=== PATIENT | male | born 1950 | race African-American/Black ===

== ENCOUNTER 2016-08-24 12:08 | Inpatient (IN) | payer OTHER ==
[~2016-08-24] VITALS: Ht 182.9 cm; Wt 63.0 kg
[2016-08-24 12:10] VITALS: BP_SYST 132
[2016-08-24 12:53] LABS: CALCIUM 8.7 mg/dL (8.4-11.0); CREATININE 1.83 mg/dL (0.55-1.30); POTASSIUM 4.3 mmol/L (3.5-5.1)
[2016-08-24 12:54] LABS: BASOPHILS % (AUTO) 1.2 % (0.0-2.0); EOSINOPHILS # (AUTO) 0.1 K/uL (0.0-0.4); EOSINOPHILS % (AUTO) 2.4 % (0.0-4.0); HEMOGLOBIN 10.9 g/dL (14.0-18.0); LYMPHOCYTES # (AUTO) 0.8 K/uL (1.0-5.5); LYMPHOCYTES % (AUTO) 20.5 % (20.5-51.5); MEAN CORPUSCULAR HEMOGLOBIN 32 pg (27-31); MEAN CORPUSCULAR HGB CONC 33 % (32-36); MEAN CORPUSCULAR VOLUME 97 fL (79.0-98.0); MONOCYTES # (AUTO) 0.5 K/uL (0.0-1.0); MONOCYTES % (AUTO) 13.8 % (1.7-9.3); NEUTROPHILS # (AUTO) 2.5 K/uL (1.8-7.7); NEUTROPHILS % (AUTO) 62.1 % (40.0-70.0); PLATELET COUNT (AUTO) 124 K/uL (130-430); RED BLOOD CELL COUNT(AUTO) 3.42 MIL/uL (4.2-6.2); RED CELL DISTRIBUTION WIDTH 16.3 % (9.0-15.0)
[2016-08-24 12:56] LABS: PROTHROMBIN TIME 10.7 SECS (9.5-12.5); WHITE BLOOD COUNT (AUTO) 3.9 K/uL (4.8-10.8)
[2016-08-24 12:58] LABS: ALBUMIN 2.8 g/dL (3.4-4.8); TOTAL BILIRUBIN 0.4 mg/dL (0.0-1.0); TOTAL PROTEIN, SERUM 7.3 g/dL (6.4-8.3)
[2016-08-24 13:33] LABS: BILIRUBIN,URINE NEGATIVE (NEGATIVE); BLOOD, URINE NEGATIVE (NEGATIVE); CLARITY/URINE SL HAZY (CLEAR); COLOR,URINE YELLOW (YELLOW); GLUCOSE,URINE 1+ (NEGATIVE); KETONES,URINE NEGATIVE (NEGATIVE); LEUKOCYTE ESTERASE ,URINE NEGATIVE (NEGATIVE); NITRITE, URINE NEGATIVE (NEGATIVE); PH,URINE 5.5 (5.0-8.0); PROTEIN URINE NEGATIVE (NEGATIVE); UROBILINOGEN,URINE 0.2 (0.2-1.0)
[2016-08-24] MEDS ORDERED: VANC125C10 PO (13:52)
[2016-08-24] MEDS ORDERED: VITD2000 PO (13:52)
[2016-08-24] MEDS ORDERED: TIOT18CA3 IH (13:52)
[2016-08-24] MEDS ORDERED: TAMS-11 PO (13:52)
[2016-08-24] MEDS ORDERED: METO25TA3 PO (13:52)
[2016-08-24] MEDS ORDERED: FAMO20TA8 PO (13:52)
[2016-08-24] MEDS ORDERED: FINA5TAB3 PO (13:52)
[2016-08-24] MEDS ORDERED: METO-290 PO (13:52)
[2016-08-24] MEDS ORDERED: TACR0.5C PO (13:52)
[2016-08-24] MEDS ORDERED: PRED10TA PO (13:52)
[2016-08-24] MEDS ORDERED: INSU100V26 SUBCUT (13:52)
[2016-08-24] MEDS ORDERED: TACR1CAP PO (13:52)
[2016-08-24] MEDS ORDERED: ACYC400T PO (13:52)
[2016-08-24] MEDS ORDERED: INSU100V9 SUBCUT (13:52)
[2016-08-24] MEDS ORDERED: SULF1TAB48 PO (13:52)
[2016-08-24] MEDS ORDERED: ACET325T53 PO (13:52)
[2016-08-24] MEDS ORDERED: MYCO180T3 PO (13:52)
[2016-08-24] MEDS ORDERED: AZIT250T PO (13:52)
[2016-08-24] MEDS ORDERED: PSYL3.4P6 PO (13:52)
[2016-08-24] MEDS ORDERED: FOLI-43 PO (13:52)
[2016-08-24] MEDS ORDERED: IPRA4AER INH (13:52)
[2016-08-24] MEDS ORDERED: methylPREDNISolone SOD SUCC/PF 62.5 MG/ML VIAL IVP ONE (14:00)
[2016-08-24] MEDS ORDERED: IPRATROPIUM/ALBUTEROL SULFATE 3 ML AMPUL.NEB INH ONE (14:00)
[2016-08-24 14:14] VITALS: BP_SYST 128
[2016-08-24] MEDS ORDERED: LEVOFLOXACIN 500 MG/D5W 100 ML IV ONE (15:00)
[2016-08-24] MEDS ORDERED: ACETAMINOPHEN 325 MG TABLET PO PRN (17:15)
[2016-08-24] MEDS: VANCOMYCIN HCL 125 MG CAPSULE PO SCH ×2 (18:00→23:29)
[2016-08-24 18:21] VITALS: BP_SYST 122
[2016-08-24 18:31] LABS: ABG TOTAL HEMOGLOBIN 11.3 G/dL (12.0-18.0); BLOOD GAS BASE EXCESS 5.2 mmol/L (-3.0-3.0); BLOOD GAS COHb% 0.5 % (0.5-1.5); BLOOD GAS HHB 2.6 % (0.0-6.0); BLOOD GAS PH 7.434 (7.350-7.450); BLOOD O2Hb% 96.6 % (94.0-97.0)
[2016-08-24 18:47] VITALS: BP_SYST 122
[2016-08-24 20:15] VITALS: BP_SYST 121
[2016-08-24] MEDS: PSYLLIUM HUSK 1 PKT PACKET PO SCH (21:00)
[2016-08-24] MEDS ORDERED: NON-FORMULARY MEDICATION (Mycophenolate Sodium (Mycophenolic Acid) 180 MG) PO SCH (21:00)
[2016-08-24] MEDS: ACYCLOVIR 400 MG TABLET PO SCH (21:46)
[2016-08-24] MEDS: TAMSULOSIN HCL 0.4 MG CAP PO SCH (21:46)
[2016-08-24] MEDS: FAMOTIDINE 20 MG TABLET PO SCH (21:46)
[2016-08-24] MEDS: TACROLIMUS ANHYDROUS 0.5 MG CAPSULE (PROGRAF) PO SCH (21:51)
[2016-08-24] MEDS ORDERED: DEXTROSE 50% JECT 50 ML DISP.SYRIN IVP PRN (22:30)
[2016-08-24] MEDS: INSULIN REGULAR, HUMAN 100 UNITS/ML, 10 ML VIAL (novoLIN R) SUBCUT PRN (22:39)
[2016-08-24] MEDS: PIPERACILLIN/TAZO 3.375/DEX-IS 50 ML IV SCH (23:29)
[2016-08-24] MEDS: IPRATROPIUM/ALBUTEROL SULFATE 3 ML AMPUL.NEB INH PRN (23:44)
[2016-08-25 00:07] VITALS: BP_SYST 128
[2016-08-25 04:00] VITALS: BP_SYST 120
[2016-08-25] MEDS: IPRATROPIUM/ALBUTEROL SULFATE 3 ML AMPUL.NEB INH PRN ×3 (05:29→14:32)
[2016-08-25] MEDS: VANCOMYCIN HCL 125 MG CAPSULE PO SCH ×4 (05:30→23:37)
[2016-08-25] MEDS: PIPERACILLIN/TAZO 3.375/DEX-IS 50 ML IV SCH ×3 (05:30→21:21)
[2016-08-25] MEDS: INSULIN REGULAR, HUMAN 100 UNITS/ML, 10 ML VIAL (novoLIN R) SUBCUT PRN (06:30)
[2016-08-25] MEDS: INSULIN ASPART 100 UNITS/ML, 10 ML VIAL SUBCUT SCH ×3 (06:31→18:05)
[2016-08-25] MEDS: METOCLOPRAMIDE HCL 10 MG TABLET PO SCH ×3 (06:36→17:34)
[2016-08-25 07:18] LABS: BASOPHILS % (AUTO) 0.3 % (0.0-2.0); EOSINOPHILS % (AUTO) 0.1 % (0.0-4.0); HEMATOCRIT 31.3 % (36-54); HEMOGLOBIN 10.3 g/dL (14.0-18.0); LYMPHOCYTES # (AUTO) 0.5 K/uL (1.0-5.5); LYMPHOCYTES % (AUTO) 10.3 % (20.5-51.5); MEAN CORPUSCULAR HEMOGLOBIN 32 pg (27-31); MEAN CORPUSCULAR HGB CONC 33 % (32-36); MEAN CORPUSCULAR VOLUME 96 fL (79.0-98.0); MONOCYTES # (AUTO) 0.2 K/uL (0.0-1.0); NEUTROPHILS # (AUTO) 3.7 K/uL (1.8-7.7); NEUTROPHILS % (AUTO) 85.3 % (40.0-70.0); PLATELET COUNT (AUTO) 131 K/uL (130-430); RED BLOOD CELL COUNT(AUTO) 3.24 MIL/uL (4.2-6.2); RED CELL DISTRIBUTION WIDTH 16.8 % (9.0-15.0); WHITE BLOOD COUNT (AUTO) 4.4 K/uL (4.8-10.8)
[2016-08-25 07:20] LABS: ALBUMIN 2.6 g/dL (3.4-4.8); CALCIUM 8.8 mg/dL (8.4-11.0); CREATININE 1.98 mg/dL (0.55-1.30); POTASSIUM 4.5 mmol/L (3.5-5.1); TOTAL BILIRUBIN 0.4 mg/dL (0.0-1.0); TOTAL PROTEIN, SERUM 7.2 g/dL (6.4-8.3)
[2016-08-25 08:54] VITALS: BP_SYST 143
[2016-08-25] MEDS ORDERED: PREDNISONE 10 MG TABLET PO SCH (09:00)
[2016-08-25] MEDS: FINASTERIDE 5 MG TABLET (PROSCAR) PO SCH (09:03)
[2016-08-25] MEDS: METOPROLOL SUCCINATE 25 MG TAB.SR.24H (TOPROL XL) PO SCH (09:03)
[2016-08-25] MEDS: CHOLECALCIFEROL (VITAMIN D3) 2,000 UNIT TABLET PO SCH (09:03)
[2016-08-25] MEDS: PSYLLIUM HUSK 1 PKT PACKET PO SCH ×2 (09:03→21:22)
[2016-08-25] MEDS: FOLIC ACID 1 MG TABLET PO SCH (09:03)
[2016-08-25] MEDS: FAMOTIDINE 20 MG TABLET PO SCH ×2 (09:03→21:22)
[2016-08-25] MEDS: TIOTROPIUM BROMIDE 18 mcg/INHALATION (CAPSULE) IH SCH (09:03)
[2016-08-25] MEDS: ACYCLOVIR 400 MG TABLET PO SCH ×2 (09:03→21:22)
[2016-08-25] MEDS: TACROLIMUS ANHYDROUS 1 MG CAPSULE (PROGRAF) PO SCH (09:13)
[2016-08-25 11:44] VITALS: BP_SYST 114
[2016-08-25] MEDS ORDERED: methylPREDNISolone SOD SUCC 40 MG/ML VIAL IVP ONE (15:15)
[2016-08-25 16:56] VITALS: BP_SYST 112
[2016-08-25 20:13] VITALS: BP_SYST 116
[2016-08-25] MEDS: IPRATROPIUM/ALBUTEROL SULFATE 3 ML AMPUL.NEB INH SCH (20:15)
[2016-08-25] MEDS: TAMSULOSIN HCL 0.4 MG CAP PO SCH (21:22)
[2016-08-25] MEDS: methylPREDNISolone SOD SUCC 40 MG/ML VIAL IVP SCH (21:22)
[2016-08-25] MEDS: TACROLIMUS ANHYDROUS 0.5 MG CAPSULE (PROGRAF) PO SCH (21:25)
[2016-08-26] MEDS: IPRATROPIUM/ALBUTEROL SULFATE 3 ML AMPUL.NEB INH SCH ×4 (00:28→20:30)
[2016-08-26 00:59] VITALS: BP_SYST 123
[2016-08-26 03:19] VITALS: BP_SYST 107; BP_SYST 122
[2016-08-26] MEDS: VANCOMYCIN HCL 125 MG CAPSULE PO SCH ×4 (05:18→23:28)
[2016-08-26] MEDS: PIPERACILLIN/TAZO 3.375/DEX-IS 50 ML IV SCH ×3 (05:18→21:20)
[2016-08-26] MEDS: METOCLOPRAMIDE HCL 10 MG TABLET PO SCH ×3 (05:54→17:22)
[2016-08-26] MEDS: INSULIN ASPART 100 UNITS/ML, 10 ML VIAL SUBCUT SCH ×3 (06:02→17:49)
[2016-08-26] MEDS: INSULIN REGULAR, HUMAN 100 UNITS/ML, 10 ML VIAL (novoLIN R) SUBCUT PRN ×2 (06:03→17:50)
[2016-08-26 06:48] LABS: CALCIUM 8.4 mg/dL (8.4-11.0); CREATININE 2.19 mg/dL (0.55-1.30); POTASSIUM 5.2 mmol/L (3.5-5.1)
[2016-08-26 06:52] LABS: BASOPHILS % (AUTO) 0.3 % (0.0-2.0); EOSINOPHILS % (AUTO) 0.3 % (0.0-4.0); HEMOGLOBIN 9.1 g/dL (14.0-18.0); LYMPHOCYTES # (AUTO) 0.4 K/uL (1.0-5.5); LYMPHOCYTES % (AUTO) 6.2 % (20.5-51.5); MEAN CORPUSCULAR HEMOGLOBIN 32 pg (27-31); MEAN CORPUSCULAR HGB CONC 33 % (32-36); MEAN CORPUSCULAR VOLUME 98 fL (79.0-98.0); MONOCYTES # (AUTO) 0.2 K/uL (0.0-1.0); MONOCYTES % (AUTO) 3.4 % (1.7-9.3); NEUTROPHILS # (AUTO) 5.5 K/uL (1.8-7.7); NEUTROPHILS % (AUTO) 89.8 % (40.0-70.0); PLATELET COUNT (AUTO) 119 K/uL (130-430); RED BLOOD CELL COUNT(AUTO) 2.86 MIL/uL (4.2-6.2)
[2016-08-26 06:56] LABS: WHITE BLOOD COUNT (AUTO) 6.1 K/uL (4.8-10.8)
[2016-08-26 08:02] VITALS: BP_SYST 120
[2016-08-26] MEDS: FOLIC ACID 1 MG TABLET PO SCH (08:51)
[2016-08-26] MEDS: methylPREDNISolone SOD SUCC 40 MG/ML VIAL IVP SCH ×2 (08:51→21:21)
[2016-08-26] MEDS: TIOTROPIUM BROMIDE 18 mcg/INHALATION (CAPSULE) IH SCH (08:51)
[2016-08-26] MEDS: ACYCLOVIR 400 MG TABLET PO SCH ×2 (08:52→21:22)
[2016-08-26] MEDS: FAMOTIDINE 20 MG TABLET PO SCH ×2 (08:52→21:22)
[2016-08-26] MEDS: AZITHROMYCIN 250 MG TABLET PO SCH (08:52)
[2016-08-26] MEDS: CHOLECALCIFEROL (VITAMIN D3) 2,000 UNIT TABLET PO SCH (08:53)
[2016-08-26] MEDS: SULFAMETHOXAZOLE/TRIMETHOPR DS 1 TABLET PO SCH (08:53)
[2016-08-26] MEDS: FINASTERIDE 5 MG TABLET (PROSCAR) PO SCH (08:53)
[2016-08-26] MEDS: TACROLIMUS ANHYDROUS 1 MG CAPSULE (PROGRAF) PO SCH (08:54)
[2016-08-26] MEDS: METOPROLOL SUCCINATE 25 MG TAB.SR.24H (TOPROL XL) PO SCH (08:55)
[2016-08-26] MEDS: PSYLLIUM HUSK 1 PKT PACKET PO SCH ×2 (09:00→21:00)
[2016-08-26] MEDS: IPRATROPIUM/ALBUTEROL SULFATE 3 ML AMPUL.NEB INH PRN (11:17)
[2016-08-26 12:00] VITALS: BP_SYST 126
[2016-08-26 16:00] VITALS: BP_SYST 127
[2016-08-26 20:00] VITALS: BP_SYST 125
[2016-08-26] MEDS: FUROSEMIDE 20 MG/2 ML VIAL IVP SCH (21:21)
[2016-08-26] MEDS: TACROLIMUS ANHYDROUS 0.5 MG CAPSULE (PROGRAF) PO SCH (21:22)
[2016-08-26] MEDS: TAMSULOSIN HCL 0.4 MG CAP PO SCH (21:22)
[2016-08-27] VITALS (7 sets, daily range): BP systolic 112–145
[2016-08-27] MEDS: IPRATROPIUM/ALBUTEROL SULFATE 3 ML AMPUL.NEB INH SCH ×4 (01:00→21:10)
[2016-08-27] MEDS: VANCOMYCIN HCL 125 MG CAPSULE PO SCH ×3 (06:00→17:03)
[2016-08-27] MEDS: PIPERACILLIN/TAZO 3.375/DEX-IS 50 ML IV SCH (06:00)
[2016-08-27] MEDS: METOCLOPRAMIDE HCL 10 MG TABLET PO SCH ×3 (06:01→17:03)
[2016-08-27] MEDS: INSULIN ASPART 100 UNITS/ML, 10 ML VIAL SUBCUT SCH ×3 (06:04→17:53)
[2016-08-27] MEDS: INSULIN REGULAR, HUMAN 100 UNITS/ML, 10 ML VIAL (novoLIN R) SUBCUT PRN ×2 (06:05→17:52)
[2016-08-27 07:29] LABS: BASOPHILS % (AUTO) 0.1 % (0.0-2.0); EOSINOPHILS % (AUTO) 0.6 % (0.0-4.0); HEMATOCRIT 29.7 % (36-54); HEMOGLOBIN 9.5 g/dL (14.0-18.0); LYMPHOCYTES # (AUTO) 0.4 K/uL (1.0-5.5); MEAN CORPUSCULAR HEMOGLOBIN 31 pg (27-31); MEAN CORPUSCULAR HGB CONC 32 % (32-36); MEAN CORPUSCULAR VOLUME 96 fL (79.0-98.0); MONOCYTES # (AUTO) 0.3 K/uL (0.0-1.0); MONOCYTES % (AUTO) 5.4 % (1.7-9.3); NEUTROPHILS # (AUTO) 5.4 K/uL (1.8-7.7); NEUTROPHILS % (AUTO) 87.9 % (40.0-70.0); PLATELET COUNT (AUTO) 124 K/uL (130-430); RED BLOOD CELL COUNT(AUTO) 3.09 MIL/uL (4.2-6.2); RED CELL DISTRIBUTION WIDTH 17.5 % (9.0-15.0); WHITE BLOOD COUNT (AUTO) 6.2 K/uL (4.8-10.8)
[2016-08-27 07:38] LABS: CALCIUM 8.6 mg/dL (8.4-11.0); CREATININE 2.36 mg/dL (0.55-1.30); POTASSIUM 4.9 mmol/L (3.5-5.1)
[2016-08-27] MEDS: CHOLECALCIFEROL (VITAMIN D3) 2,000 UNIT TABLET PO SCH (08:25)
[2016-08-27] MEDS: FUROSEMIDE 20 MG/2 ML VIAL IVP SCH ×2 (08:26→20:22)
[2016-08-27] MEDS: FAMOTIDINE 20 MG TABLET PO SCH ×2 (08:26→20:08)
[2016-08-27] MEDS: FOLIC ACID 1 MG TABLET PO SCH (08:26)
[2016-08-27] MEDS: ACYCLOVIR 400 MG TABLET PO SCH ×2 (08:26→20:08)
[2016-08-27] MEDS: FINASTERIDE 5 MG TABLET (PROSCAR) PO SCH (08:27)
[2016-08-27] MEDS: methylPREDNISolone SOD SUCC 40 MG/ML VIAL IVP SCH ×2 (08:27→17:03)
[2016-08-27] MEDS: METOPROLOL SUCCINATE 25 MG TAB.SR.24H (TOPROL XL) PO SCH (08:27)
[2016-08-27] MEDS: TIOTROPIUM BROMIDE 18 mcg/INHALATION (CAPSULE) IH SCH (08:33)
[2016-08-27] MEDS: TACROLIMUS ANHYDROUS 1 MG CAPSULE (PROGRAF) PO SCH (08:34)
[2016-08-27] MEDS: PSYLLIUM HUSK 1 PKT PACKET PO SCH ×2 (09:00→20:09)
[2016-08-27] MEDS: TAMSULOSIN HCL 0.4 MG CAP PO SCH (20:08)
[2016-08-27] MEDS: TACROLIMUS ANHYDROUS 0.5 MG CAPSULE (PROGRAF) PO SCH (20:09)
[2016-08-27] MEDS: MEROPENEM 500 MG in NS 50 ML IV SCH (20:22)
[2016-08-27] MEDS: TOBRAMYCIN 300MG/5ML INH AMPUL.NEB INH SCH (21:18)
[2016-08-28] MEDS: VANCOMYCIN HCL 125 MG CAPSULE PO SCH ×4 (00:13→18:12)
[2016-08-28] MEDS: IPRATROPIUM/ALBUTEROL SULFATE 3 ML AMPUL.NEB INH SCH ×3 (01:12→21:40)
[2016-08-28] MEDS: methylPREDNISolone SOD SUCC 40 MG/ML VIAL IVP SCH ×3 (01:16→18:12)
[2016-08-28 04:14] VITALS: BP_SYST 129
[2016-08-28] MEDS: METOCLOPRAMIDE HCL 10 MG TABLET PO SCH ×3 (06:11→18:12)
[2016-08-28] MEDS: INSULIN ASPART 100 UNITS/ML, 10 ML VIAL SUBCUT SCH ×3 (06:16→18:16)
[2016-08-28 06:30] LABS: HEMATOCRIT 29.8 % (36-54); HEMOGLOBIN 9.4 g/dL (14.0-18.0); LYMPHOCYTES # (AUTO) 0.3 K/uL (1.0-5.5); LYMPHOCYTES % (AUTO) 4.8 % (20.5-51.5); MEAN CORPUSCULAR HEMOGLOBIN 30 pg (27-31); MEAN CORPUSCULAR HGB CONC 32 % (32-36); MEAN CORPUSCULAR VOLUME 96 fL (79.0-98.0); MONOCYTES # (AUTO) 0.4 K/uL (0.0-1.0); MONOCYTES % (AUTO) 6.2 % (1.7-9.3); NEUTROPHILS # (AUTO) 5.3 K/uL (1.8-7.7); PLATELET COUNT (AUTO) 132 K/uL (130-430); RED CELL DISTRIBUTION WIDTH 17.2 % (9.0-15.0)
[2016-08-28] MEDS: INSULIN REGULAR, HUMAN 100 UNITS/ML, 10 ML VIAL (novoLIN R) SUBCUT PRN ×2 (06:32→11:34)
[2016-08-28 06:33] LABS: CALCIUM 8.8 mg/dL (8.4-11.0); CHLORIDE 98 mmol/L (98-107); CREATININE 2.29 mg/dL (0.55-1.30); GLUCOSE 218 mg/dL (70-99); POTASSIUM 4.8 mmol/L (3.5-5.1); SODIUM SERUM 133 mmol/L (136-145); UREA NITROGEN, BLOOD 52 mg/dL (8-21)
[2016-08-28 06:42] LABS: ANION GAP < 3 (5-15); GFR AFRICAN AMERICAN 37 mL/min (>90)
[2016-08-28 08:00] VITALS: BP_SYST 149
[2016-08-28] MEDS: TIOTROPIUM BROMIDE 18 mcg/INHALATION (CAPSULE) IH SCH (08:59)
[2016-08-28] MEDS: PSYLLIUM HUSK 1 PKT PACKET PO SCH ×2 (09:00→20:59)
[2016-08-28] MEDS: FUROSEMIDE 20 MG/2 ML VIAL IVP SCH ×2 (09:00→21:49)
[2016-08-28] MEDS: SULFAMETHOXAZOLE/TRIMETHOPR DS 1 TABLET PO SCH (09:00)
[2016-08-28] MEDS: TACROLIMUS ANHYDROUS 1 MG CAPSULE (PROGRAF) PO SCH (09:00)
[2016-08-28] MEDS: ACYCLOVIR 400 MG TABLET PO SCH ×2 (09:00→20:58)
[2016-08-28] MEDS: FAMOTIDINE 20 MG TABLET PO SCH ×2 (09:00→20:58)
[2016-08-28] MEDS: FOLIC ACID 1 MG TABLET PO SCH (09:00)
[2016-08-28] MEDS: METOPROLOL SUCCINATE 25 MG TAB.SR.24H (TOPROL XL) PO SCH (09:02)
[2016-08-28] MEDS: AZITHROMYCIN 250 MG TABLET PO SCH (09:02)
[2016-08-28] MEDS: MEROPENEM 500 MG in NS 50 ML IV SCH ×2 (09:02→21:48)
[2016-08-28] MEDS: CHOLECALCIFEROL (VITAMIN D3) 2,000 UNIT TABLET PO SCH (09:02)
[2016-08-28] MEDS: FINASTERIDE 5 MG TABLET (PROSCAR) PO SCH (09:12)
[2016-08-28 11:30] VITALS: BP_SYST 134
[2016-08-28 15:28] VITALS: BP_SYST 126
[2016-08-28 19:40] VITALS: BP_SYST 140
[2016-08-28] MEDS: TAMSULOSIN HCL 0.4 MG CAP PO SCH (20:58)
[2016-08-28] MEDS: TACROLIMUS ANHYDROUS 0.5 MG CAPSULE (PROGRAF) PO SCH (20:59)
[2016-08-28] MEDS: TOBRAMYCIN 300MG/5ML INH AMPUL.NEB INH SCH (21:42)
[2016-08-29 00:34] VITALS: BP_SYST 122
[2016-08-29] MEDS: methylPREDNISolone SOD SUCC 40 MG/ML VIAL IVP SCH ×3 (00:53→17:08)
[2016-08-29] MEDS: VANCOMYCIN HCL 125 MG CAPSULE PO SCH ×4 (00:53→17:08)
[2016-08-29] MEDS: IPRATROPIUM/ALBUTEROL SULFATE 3 ML AMPUL.NEB INH SCH ×4 (01:38→19:32)
[2016-08-29 04:00] VITALS: BP_SYST 136
[2016-08-29] MEDS: METOCLOPRAMIDE HCL 10 MG TABLET PO SCH ×3 (06:12→17:08)
[2016-08-29] MEDS: INSULIN ASPART 100 UNITS/ML, 10 ML VIAL SUBCUT SCH ×3 (06:14→17:13)
[2016-08-29] MEDS: INSULIN REGULAR, HUMAN 100 UNITS/ML, 10 ML VIAL (novoLIN R) SUBCUT PRN ×3 (06:25→17:14)
[2016-08-29 08:00] VITALS: BP_SYST 146
[2016-08-29] MEDS: TOBRAMYCIN 300MG/5ML INH AMPUL.NEB INH SCH ×2 (08:00→19:44)
[2016-08-29] MEDS: PSYLLIUM HUSK 1 PKT PACKET PO SCH ×2 (09:00→21:00)
[2016-08-29] MEDS: TIOTROPIUM BROMIDE 18 mcg/INHALATION (CAPSULE) IH SCH (09:18)
[2016-08-29] MEDS: MEROPENEM 500 MG in NS 50 ML IV SCH ×2 (09:18→21:02)
[2016-08-29] MEDS: METOPROLOL SUCCINATE 25 MG TAB.SR.24H (TOPROL XL) PO SCH (09:21)
[2016-08-29] MEDS: FAMOTIDINE 20 MG TABLET PO SCH ×2 (09:22→21:01)
[2016-08-29] MEDS: FUROSEMIDE 20 MG/2 ML VIAL IVP SCH ×2 (09:22→21:00)
[2016-08-29] MEDS: FOLIC ACID 1 MG TABLET PO SCH (09:22)
[2016-08-29] MEDS: CHOLECALCIFEROL (VITAMIN D3) 2,000 UNIT TABLET PO SCH (09:22)
[2016-08-29] MEDS: ACYCLOVIR 400 MG TABLET PO SCH ×2 (09:22→21:01)
[2016-08-29] MEDS: FINASTERIDE 5 MG TABLET (PROSCAR) PO SCH (09:22)
[2016-08-29] MEDS: TACROLIMUS ANHYDROUS 1 MG CAPSULE (PROGRAF) PO SCH (10:08)
[2016-08-29 12:00] VITALS: BP_SYST 130
[2016-08-29 15:38] VITALS: BP_SYST 120
[2016-08-29] MEDS ORDERED: SODIUM CL 3% FOR INHALATION 15 ML VIAL.NEB INH ONE (16:45)
[2016-08-29 20:00] VITALS: BP_SYST 126
[2016-08-29] MEDS: TAMSULOSIN HCL 0.4 MG CAP PO SCH (21:01)
[2016-08-29] MEDS: TACROLIMUS ANHYDROUS 0.5 MG CAPSULE (PROGRAF) PO SCH (21:01)
[2016-08-30 00:05] VITALS: BP_SYST 140
[2016-08-30] MEDS: VANCOMYCIN HCL 125 MG CAPSULE PO SCH ×4 (00:52→17:31)
[2016-08-30] MEDS: methylPREDNISolone SOD SUCC 40 MG/ML VIAL IVP SCH ×3 (00:52→17:31)
[2016-08-30] MEDS: IPRATROPIUM/ALBUTEROL SULFATE 3 ML AMPUL.NEB INH SCH ×4 (01:04→19:13)
[2016-08-30 04:00] VITALS: BP_SYST 116
[2016-08-30] MEDS: METOCLOPRAMIDE HCL 10 MG TABLET PO SCH ×3 (06:23→17:19)
[2016-08-30] MEDS: INSULIN REGULAR, HUMAN 100 UNITS/ML, 10 ML VIAL (novoLIN R) SUBCUT PRN ×3 (06:31→21:47)
[2016-08-30] MEDS: INSULIN ASPART 100 UNITS/ML, 10 ML VIAL SUBCUT SCH ×3 (06:37→17:24)
[2016-08-30 07:00] VITALS: BP_SYST 132
[2016-08-30] MEDS: TOBRAMYCIN 300MG/5ML INH AMPUL.NEB INH SCH ×2 (07:19→19:00)
[2016-08-30 07:40] VITALS: BP_SYST 132
[2016-08-30] MEDS: PSYLLIUM HUSK 1 PKT PACKET PO SCH ×2 (09:00→21:00)
[2016-08-30] MEDS: TIOTROPIUM BROMIDE 18 mcg/INHALATION (CAPSULE) IH SCH (09:23)
[2016-08-30] MEDS: FUROSEMIDE 20 MG/2 ML VIAL IVP SCH ×2 (09:24→21:40)
[2016-08-30] MEDS: TACROLIMUS ANHYDROUS 1 MG CAPSULE (PROGRAF) PO SCH (09:25)
[2016-08-30] MEDS: FINASTERIDE 5 MG TABLET (PROSCAR) PO SCH (09:26)
[2016-08-30] MEDS: FOLIC ACID 1 MG TABLET PO SCH (09:26)
[2016-08-30] MEDS: CHOLECALCIFEROL (VITAMIN D3) 2,000 UNIT TABLET PO SCH (09:26)
[2016-08-30] MEDS: ACYCLOVIR 400 MG TABLET PO SCH ×2 (09:26→21:37)
[2016-08-30] MEDS: FAMOTIDINE 20 MG TABLET PO SCH ×2 (09:27→21:37)
[2016-08-30] MEDS: METOPROLOL SUCCINATE 25 MG TAB.SR.24H (TOPROL XL) PO SCH (09:27)
[2016-08-30] MEDS: MEROPENEM 500 MG in NS 50 ML IV SCH ×2 (09:36→21:37)
[2016-08-30 12:00] VITALS: BP_SYST 145
[2016-08-30 16:00] VITALS: BP_SYST 134
[2016-08-30] MEDS ORDERED: TOBRAMYCIN SULFATE 80 MG/2 ML VIAL ONE (19:52)
[2016-08-30] MEDS: TAMSULOSIN HCL 0.4 MG CAP PO SCH (21:37)
[2016-08-30] MEDS: TACROLIMUS ANHYDROUS 0.5 MG CAPSULE (PROGRAF) PO SCH (21:38)
[2016-08-31] VITALS: BP_SYST 136
[2016-08-31] MEDS: methylPREDNISolone SOD SUCC 40 MG/ML VIAL IVP SCH ×4 (00:43→21:49)
[2016-08-31] MEDS: VANCOMYCIN HCL 125 MG CAPSULE PO SCH (00:43)
[2016-08-31] MEDS: IPRATROPIUM/ALBUTEROL SULFATE 3 ML AMPUL.NEB INH SCH ×4 (01:13→19:29)
[2016-08-31 03:18] VITALS: BP_SYST 145
[2016-08-31] MEDS: METOCLOPRAMIDE HCL 10 MG TABLET PO SCH ×3 (06:05→17:20)
[2016-08-31] MEDS: INSULIN ASPART 100 UNITS/ML, 10 ML VIAL SUBCUT SCH ×3 (06:09→17:00)
[2016-08-31] MEDS: INSULIN REGULAR, HUMAN 100 UNITS/ML, 10 ML VIAL (novoLIN R) SUBCUT PRN ×2 (06:12→21:59)
[2016-08-31 06:35] LABS: BASOPHILS % (AUTO) 0.1 % (0.0-2.0); HEMATOCRIT 32.8 % (36-54); HEMOGLOBIN 10.4 g/dL (14.0-18.0); LYMPHOCYTES # (AUTO) 0.2 K/uL (1.0-5.5); LYMPHOCYTES % (AUTO) 3.3 % (20.5-51.5); MEAN CORPUSCULAR HEMOGLOBIN 31 pg (27-31); MEAN CORPUSCULAR HGB CONC 32 % (32-36); MEAN CORPUSCULAR VOLUME 98 fL (79.0-98.0); MONOCYTES # (AUTO) 0.4 K/uL (0.0-1.0); MONOCYTES % (AUTO) 6.9 % (1.7-9.3); NEUTROPHILS # (AUTO) 5.2 K/uL (1.8-7.7); NEUTROPHILS % (AUTO) 89.7 % (40.0-70.0); PLATELET COUNT (AUTO) 165 K/uL (130-430); RED BLOOD CELL COUNT(AUTO) 3.35 MIL/uL (4.2-6.2); RED CELL DISTRIBUTION WIDTH 18.1 % (9.0-15.0); WHITE BLOOD COUNT (AUTO) 5.9 K/uL (4.8-10.8)
[2016-08-31 07:14] LABS: CREATININE 2.22 mg/dL (0.55-1.30); POTASSIUM 4.7 mmol/L (3.5-5.1)
[2016-08-31 08:00] VITALS: BP_SYST 156
[2016-08-31] MEDS: TIOTROPIUM BROMIDE 18 mcg/INHALATION (CAPSULE) IH SCH (08:46)
[2016-08-31] MEDS: METOPROLOL SUCCINATE 25 MG TAB.SR.24H (TOPROL XL) PO SCH (08:47)
[2016-08-31] MEDS: ACYCLOVIR 400 MG TABLET PO SCH (08:47)
[2016-08-31] MEDS: MEROPENEM 500 MG in NS 50 ML IV SCH ×2 (08:47→21:48)
[2016-08-31] MEDS: FUROSEMIDE 20 MG/2 ML VIAL IVP SCH ×2 (08:47→21:49)
[2016-08-31] MEDS: TACROLIMUS ANHYDROUS 1 MG CAPSULE (PROGRAF) PO SCH (08:48)
[2016-08-31] MEDS: FAMOTIDINE 20 MG TABLET PO SCH ×2 (08:48→21:48)
[2016-08-31] MEDS: SULFAMETHOXAZOLE/TRIMETHOPR DS 1 TABLET PO SCH (08:48)
[2016-08-31] MEDS: FOLIC ACID 1 MG TABLET PO SCH (08:48)
[2016-08-31] MEDS: CHOLECALCIFEROL (VITAMIN D3) 2,000 UNIT TABLET PO SCH (08:48)
[2016-08-31] MEDS: FINASTERIDE 5 MG TABLET (PROSCAR) PO SCH (08:48)
[2016-08-31] MEDS: PSYLLIUM HUSK 1 PKT PACKET PO SCH ×2 (09:00→21:00)
[2016-08-31] MEDS: TOBRAMYCIN 300MG/5ML INH AMPUL.NEB INH SCH ×2 (09:00→19:45)
[2016-08-31] MEDS: MAG-AL HYDROX/SIMETH 30 ML UDC PO PRN ×3 (10:43→23:01)
[2016-08-31 12:50] VITALS: BP_SYST 126
[2016-08-31 16:58] VITALS: BP_SYST 125
[2016-08-31 21:43] LABS: MYCOPLASMA PNEUMONIAE IgM <770 U/mL (0-769)
[2016-08-31] MEDS: TAMSULOSIN HCL 0.4 MG CAP PO SCH (21:48)
[2016-08-31] MEDS: TACROLIMUS ANHYDROUS 0.5 MG CAPSULE (PROGRAF) PO SCH (22:04)
[2016-08-31] MEDS: IPRATROPIUM/ALBUTEROL SULFATE 3 ML AMPUL.NEB INH PRN (22:27)
[2016-09-01] VITALS: BP_SYST 143
[2016-09-01] MEDS: IPRATROPIUM/ALBUTEROL SULFATE 3 ML AMPUL.NEB INH SCH ×4 (00:28→19:35)
[2016-09-01 04:00] VITALS: BP_SYST 122
[2016-09-01] MEDS: MAG-AL HYDROX/SIMETH 30 ML UDC PO PRN (05:31)
[2016-09-01] MEDS: METOCLOPRAMIDE HCL 10 MG TABLET PO SCH (06:05)
[2016-09-01] MEDS: INSULIN ASPART 100 UNITS/ML, 10 ML VIAL SUBCUT SCH ×3 (06:09→17:25)
[2016-09-01] MEDS: INSULIN REGULAR, HUMAN 100 UNITS/ML, 10 ML VIAL (novoLIN R) SUBCUT PRN (06:11)
[2016-09-01 08:30] VITALS: BP_SYST 143
[2016-09-01] MEDS: TIOTROPIUM BROMIDE 18 mcg/INHALATION (CAPSULE) IH SCH (08:39)
[2016-09-01] MEDS: MEROPENEM 500 MG in NS 50 ML IV SCH ×2 (08:40→21:17)
[2016-09-01] MEDS: methylPREDNISolone SOD SUCC 40 MG/ML VIAL IVP SCH ×2 (08:45→21:18)
[2016-09-01] MEDS: FOLIC ACID 1 MG TABLET PO SCH (08:46)
[2016-09-01] MEDS: TACROLIMUS ANHYDROUS 1 MG CAPSULE (PROGRAF) PO SCH (08:47)
[2016-09-01] MEDS: FAMOTIDINE 20 MG TABLET PO SCH ×2 (08:47→21:17)
[2016-09-01] MEDS: PSYLLIUM HUSK 1 PKT PACKET PO SCH ×3 (08:47→21:18)
[2016-09-01] MEDS: CHOLECALCIFEROL (VITAMIN D3) 2,000 UNIT TABLET PO SCH (08:48)
[2016-09-01] MEDS: FINASTERIDE 5 MG TABLET (PROSCAR) PO SCH (08:48)
[2016-09-01] MEDS: METOPROLOL SUCCINATE 25 MG TAB.SR.24H (TOPROL XL) PO SCH (09:14)
[2016-09-01] MEDS: TOBRAMYCIN 300MG/5ML INH AMPUL.NEB INH SCH ×2 (09:22→19:52)
[2016-09-01 09:38] LABS: FREE T4 (FREE THYROXINE) 0.6 ng/dL (0.6-1.6); THYROID STIMULATING HORMONE 1.08 uIu/mL (0.34-4.82)
[2016-09-01 11:02] LABS: ALBUMIN 2.9 g/dL (3.4-4.8); CALCIUM 9.4 mg/dL (8.4-11.0); CREATININE 2.23 mg/dL (0.55-1.30); POTASSIUM 4.7 mmol/L (3.5-5.1); TOTAL BILIRUBIN 0.3 mg/dL (0.0-1.0); TOTAL PROTEIN, SERUM 6.8 g/dL (6.4-8.3)
[2016-09-01 12:43] VITALS: BP_SYST 119; BP_SYST 149
[2016-09-01] MEDS ORDERED: FLUCONAZOLE 100 MG TABLET (DIFLUCAN) PO ONE (13:45)
[2016-09-01] MEDS ORDERED: NYSTATIN 500,000 UNITS/5 ML UDC PO ONE (14:00)
[2016-09-01 16:05] VITALS: BP_SYST 160
[2016-09-01] MEDS: NYSTATIN 500,000 UNITS/5 ML UDC PO SCH (17:26)
[2016-09-01 19:40] VITALS: BP_SYST 153
[2016-09-01] MEDS: TAMSULOSIN HCL 0.4 MG CAP PO SCH (21:17)
[2016-09-01] MEDS: TACROLIMUS ANHYDROUS 0.5 MG CAPSULE (PROGRAF) PO SCH (21:18)
[2016-09-02] MEDS: IPRATROPIUM/ALBUTEROL SULFATE 3 ML AMPUL.NEB INH SCH ×3 (00:07→13:12)
[2016-09-02] MEDS: NYSTATIN 500,000 UNITS/5 ML UDC PO SCH ×3 (00:45→11:36)
[2016-09-02 00:50] VITALS: BP_SYST 108
[2016-09-02 04:38] VITALS: BP_SYST 110
[2016-09-02 06:15] LABS: BASOPHILS % (AUTO) 0.1 % (0.0-2.0); HEMATOCRIT 33.3 % (36-54); HEMOGLOBIN 10.5 g/dL (14.0-18.0); LYMPHOCYTES # (AUTO) 0.2 K/uL (1.0-5.5); LYMPHOCYTES % (AUTO) 3.5 % (20.5-51.5); MEAN CORPUSCULAR HEMOGLOBIN 31 pg (27-31); MEAN CORPUSCULAR HGB CONC 32 % (32-36); MEAN CORPUSCULAR VOLUME 97 fL (79.0-98.0); MONOCYTES # (AUTO) 0.4 K/uL (0.0-1.0); MONOCYTES % (AUTO) 6.5 % (1.7-9.3); NEUTROPHILS # (AUTO) 5.8 K/uL (1.8-7.7); NEUTROPHILS % (AUTO) 89.9 % (40.0-70.0); PLATELET COUNT (AUTO) 152 K/uL (130-430); RED BLOOD CELL COUNT(AUTO) 3.42 MIL/uL (4.2-6.2); RED CELL DISTRIBUTION WIDTH 17.4 % (9.0-15.0); WHITE BLOOD COUNT (AUTO) 6.4 K/uL (4.8-10.8)
[2016-09-02 06:18] LABS: ALANINE AMINOTRANSFERASE 33 U/L (12-78); ALBUMIN 2.5 g/dL (3.4-4.8); ASPARTATE AMINOTRANSFERASE 31 U/L (10-37); CHLORIDE 101 mmol/L (98-107); GLUCOSE 167 mg/dL (70-99); SODIUM SERUM 135 mmol/L (136-145); TOTAL BILIRUBIN 0.3 mg/dL (0.0-1.0); TOTAL PROTEIN, SERUM 6.6 g/dL (6.4-8.3); UREA NITROGEN, BLOOD 63 mg/dL (8-21)
[2016-09-02] MEDS: MAG-AL HYDROX/SIMETH 30 ML UDC PO PRN ×2 (06:32→10:38)
[2016-09-02] MEDS: INSULIN ASPART 100 UNITS/ML, 10 ML VIAL SUBCUT SCH ×2 (06:35→11:30)
[2016-09-02] MEDS: INSULIN REGULAR, HUMAN 100 UNITS/ML, 10 ML VIAL (novoLIN R) SUBCUT PRN (06:37)
[2016-09-02 06:52] LABS: GFR AFRICAN AMERICAN 39 mL/min (>90)
[2016-09-02 06:53] LABS: POTASSIUM 5.8 mmol/L (3.5-5.1)
[2016-09-02 06:55] LABS: ANION GAP < 3 (5-15)
[2016-09-02] MEDS: TOBRAMYCIN 300MG/5ML INH AMPUL.NEB INH SCH (07:41)
[2016-09-02] MEDS: FAMOTIDINE 20 MG TABLET PO SCH (08:54)
[2016-09-02] MEDS: FINASTERIDE 5 MG TABLET (PROSCAR) PO SCH (08:55)
[2016-09-02] MEDS: FOLIC ACID 1 MG TABLET PO SCH (08:55)
[2016-09-02] MEDS: SULFAMETHOXAZOLE/TRIMETHOPR DS 1 TABLET PO SCH (08:56)
[2016-09-02] MEDS: CHOLECALCIFEROL (VITAMIN D3) 2,000 UNIT TABLET PO SCH (08:56)
[2016-09-02] MEDS: methylPREDNISolone SOD SUCC 40 MG/ML VIAL IVP SCH (08:57)
[2016-09-02] MEDS: METOPROLOL SUCCINATE 25 MG TAB.SR.24H (TOPROL XL) PO SCH (08:57)
[2016-09-02] MEDS: MEROPENEM 500 MG in NS 50 ML IV SCH (08:57)
[2016-09-02] MEDS: TACROLIMUS ANHYDROUS 1 MG CAPSULE (PROGRAF) PO SCH ×2 (08:58→09:00)
[2016-09-02] MEDS ORDERED: FLUCONAZOLE 100 MG TABLET (DIFLUCAN) PO SCH (09:00)
[2016-09-02] MEDS ORDERED: FUROSEMIDE 40 MG TABLET PO SCH ×2 (09:00)
[2016-09-02] MEDS: PSYLLIUM HUSK 1 PKT PACKET PO SCH (09:00)
[2016-09-02 09:39] VITALS: BP_SYST 125
[2016-09-02] MEDS ORDERED: SODIUM POLYSTYRENE SULFONATE 15 GM/60 ML UDBTL PO ONE (09:45)
[2016-09-02] MEDS: TIOTROPIUM BROMIDE 18 mcg/INHALATION (CAPSULE) IH SCH (10:20)
[2016-09-02 12:00] VITALS: BP_SYST 152
[2016-09-02 13:24] VITALS: BP_SYST 152
[2016-09-02 13:34] VITALS: BP_SYST 152
[2016-09-03] MEDS ORDERED: FLUCONAZOLE 100 MG TABLET (DIFLUCAN) PO SCH (09:00)
== END 2016-09-02 14:30 | DRG 193 ==
LOC: SED 12:08 → STU 13:52 → SMU 08-27 14:25 → STU 08-27 19:52
PROVIDERS: ADMIT Internal Medicine; ATTEND Internal Medicine
DX: J18.9 Pneumonia, unspecified organism (principal); J96.20 Acute and chronic respiratory failure, unspecified whether with hypoxia or hypercapnia; E44.1 Mild protein-calorie malnutrition; Z94.2 Lung transplant status; Z68.1 Body mass index [BMI] 19.9 or less, adult; E87.1 Hypo-osmolality and hyponatremia; A04.7 Enterocolitis due to Clostridium difficile; I47.1 Supraventricular tachycardia; J90 Pleural effusion, not elsewhere classified; B37.81 Candidal esophagitis; T86.810 Lung transplant rejection; E11.21 Type 2 diabetes mellitus with diabetic nephropathy; I27.81 Cor pulmonale (chronic); J84.10 Pulmonary fibrosis, unspecified; E11.22 Type 2 diabetes mellitus with diabetic chronic kidney disease; E11.51 Type 2 diabetes mellitus with diabetic peripheral angiopathy without gangrene; Z16.24 Resistance to multiple antibiotics; D63.8 Anemia in other chronic diseases classified elsewhere; I12.9 Hypertensive chronic kidney disease with stage 1 through stage 4 chronic kidney disease, or unspecified chronic kidney disease; N18.9 Chronic kidney disease, unspecified; N40.0 Benign prostatic hyperplasia without lower urinary tract symptoms; Z87.891 Personal history of nicotine dependence; Z99.81 Dependence on supplemental oxygen
CPT/HCPCS: 36415; 36600; 71010; 71250-TC; 76700-TC; 80048; 80053; 80061; 81003; 82803-TC; 82962; 83605; 83690-TC; 83880; 84439; 84443-TC; 84484; 85025; 85379; 85610-TC; 85730-TC; 86480; 86694; 86738; 87040-TC; 87081; 87101; 87205-TC; 87230-TC; 87449; 87497; 93005; 93306; 93970; 94640; 94760; 97110-GP; 97116-GP; 97530-GP; J1030; J1815; J1940; J1956; J2185; J2543; J2930; J3260; J7040; J7050; J7060; J7131; J7507; J7512; J8597; Q0144